=== PATIENT | female | born 1995 | race Caucasian/White ===

== ENCOUNTER 2021-03-25 17:30 | Emergency (ER) | payer BC ==
[2021-03-26 14:07] LABS: SARS-CoV-2 NAA Not Detected (Not Detected)
== END 2021-03-25 18:08 | disposition home or self-care (01) ==
LOC: JVIRT 17:30
DX: Z20.822 Contact with and (suspected) exposure to COVID-19 (principal)
CPT/HCPCS: C9803; Q3014-GT; U0003; U0005

== ENCOUNTER 2021-03-30 14:06 | Emergency (ER) | payer BC ==
[2021-03-31 15:07] LABS: SARS-CoV-2 NAA Not Detected (Not Detected)
== END 2021-03-30 14:35 | disposition home or self-care (01) ==
LOC: JVIRT 14:06
DX: Z20.822 Contact with and (suspected) exposure to COVID-19 (principal)
CPT/HCPCS: C9803; Q3014-GT; U0003; U0005